=== PATIENT | female | born 1990 | race Caucasian/White ===

== ENCOUNTER 2018-10-10 05:16 | Day surgery (SDC) | payer MEDICAID ==
[~2018-10-10] VITALS: Ht 403.9 cm; Wt 77.1 kg
[~2018-10-10 05:16] MED LIST: TYLENOL W/CODEI1 TAB PO; birth control PO
[2018-10-10 06:10] LABS: HEMATOCRIT 40.3 % (36.0-48.0); HEMOGLOBIN 13.3 g/dL (12-16); MCH 31.4 pg (26.0-34.0); MCV 95.3 fL (80.0-100.0); MEAN PLATELET VOLUME 11.4 fL (7.4-10.4); RBC 4.23 10x6/uL (4.00-5.40); RDW 13.3 % (11.5-14.5); WBC 9.9 10x3/uL (4.8-10.8)
[2018-10-10 06:23] VITALS: BP 119/82; Ht 403.9 cm; Wt 77.1 kg
[2018-10-10 06:37] LABS: HCG URINE NEGATIVE (NEGATIVE)
--- NOTE | 2018-10-10 11:30 | NUR ---
RECEIVED BACK FROM PACE VIA STRETCHER 1000, PT AWAKE AND ALERT
--- NOTE | 2018-10-10 11:38 | NUR ---
DISCHARDED [id number] VIA
== END 2018-10-10 11:35 | disposition home or self-care (01) ==
LOC: D.OPS 05:16 → D.PAN 07:30 → D.OPS 08:30
PROVIDERS: Anesthesiology; Orthopaedic Surgery
DX: S62.396A Other fracture of fifth metacarpal bone, right hand, initial encounter for closed fracture (principal); X58.XXXA Exposure to other specified factors, initial encounter; Z01.812 Encounter for preprocedural laboratory examination